=== PATIENT | male | born 1975 | race Two or more races ===

== ENCOUNTER 2023-12-31 13:32 | Emergency (ER) | payer OTHER ==
[~2023-12-31] VITALS: Ht 177.8 cm; Wt 79.4 kg
[2023-12-31] MEDS ORDERED: KETOROLAC TROMETHAMINE 30 MG VIAL IM ONE (16:30)
[2023-12-31] MEDS ORDERED: TRAMADOL HCL 50 MG TABLET PO ONE (16:30)
[2023-12-31] MEDS ORDERED: ORPHENADRINE CITRATE 30 MG/ML AMPUL IM ONE (16:30)
[2023-12-31] MEDS ORDERED: ORPHENADRINE CITRATE 30 MG/ML AMPUL ONE (16:32)
[2023-12-31] MEDS ORDERED: KETOROLAC TROMETHAMINE 30 MG VIAL ONE (16:32)
[2023-12-31] MEDS ORDERED: DEXAMETHASONE SODIUM PHOSPHATE 4 MG/ML VIAL IM ONE (18:00)
[2023-12-31] MEDS ORDERED: DEXAMETHASONE SODIUM PHOSPHATE 4 MG/ML VIAL ONE (18:06)
== END 2023-12-31 20:53 | disposition home or self-care (01) ==
LOC: ER 13:33
DX: M54.30 Sciatica, unspecified side (principal); Z91.041 Radiographic dye allergy status